=== PATIENT | female | born 1970 | race Hispanic/Latino ===

== ENCOUNTER 2017-08-30 14:48 | Emergency (ER) | payer MEDICARE, MEDICAID ==
[2017-08-30 14:48] VITALS: BMI 28.0
[2017-08-30 15:14] VITALS: TEMP 98.5; O2SAT 100
[2017-08-30 15:57] LABS: RBC URINE 3 /hpf (0-3); URINE BILIRUBIN NEGATIVE (NEGATIVE); URINE BLOOD NEGATIVE (NEGATIVE); URINE COLOR Yellow (YELLOW); URINE GLUCOSE (UA) NORMAL (Normal); URINE KETONE NEGATIVE (NEGATIVE); URINE LEUKOCYTE ESTERASE 2+ Leu/uL (Negative); URINE PROTEIN NEGATIVE (NEGATIVE); URINE UROBILINOGEN NORMAL mg/dL (0.2-1.0); WBC URINE 11 /hpf (0-5)
[2017-08-30] MEDS ORDERED: cefTRIAXone (Rocephin) 250 mg Inj IM STA (17:39)
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
[2017-08-30 18:03] VITALS: BP 120/60; PULSE 87; RESP 18
== END 2017-08-30 18:03 | disposition home or self-care (01) ==
LOC: C.ER 14:48
DX: T76.21XA Adult sexual abuse, suspected, initial encounter (principal)
CPT/HCPCS: 81001; 84703; 96372; 99285; J0696

== ENCOUNTER 2017-10-17 16:33 | Emergency (ER) | payer MEDICARE, MEDICAID ==
[2017-10-17 16:59] VITALS: BMI 32.8
[2017-10-17 17:01] VITALS: TEMP 98
[2017-10-17] MEDS ORDERED: Emtricitabine-Tenofovir 200 mg-300 mg Tab PO STA (18:26)
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
[2017-10-17] MEDS ORDERED: Emtricitabine-Tenofovir 200 mg-300 mg Tab PO NR (18:30)
[2017-10-17 19:18] LABS: HCG,QUALITATIVE URINE NEGATIVE (NEGATIVE)
[2017-10-17 19:23] LABS: SQUAMOUS EPITHIAL < 1 /hpf (0-5); URINE BILIRUBIN NEGATIVE (NEGATIVE); URINE BLOOD NEGATIVE (NEGATIVE); URINE CLARITY Clear (Clear); URINE COLOR Yellow (YELLOW); URINE GLUCOSE (UA) NORMAL (Normal); URINE LEUKOCYTE ESTERASE 2+ Leu/uL (Negative); URINE NITRATE NEGATIVE (NEGATIVE); URINE PROTEIN NEGATIVE (NEGATIVE); URINE UROBILINOGEN NORMAL mg/dL (0.2-1.0)
[2017-10-17 19:25] LABS: BASO % 0.9 % (0.0-2.0); EOS # 0.1 K/uL (0.0-0.7); EOS % 1.7 % (0.0-4.0); HEMOGLOBIN 11.9 g/dL (11.0-16.0); LYMPH # 1.7 K/uL (1.0-4.3); LYMPH % 31.1 % (20.0-40.0); MEAN CELL VOLUME 87.6 fL (81.0-99.0); MEAN CORPUSCULAR HGB CONC 34.3 g/dL (33.0-37.0); MEAN PLATELET VOLUME 7.6 fL (7.2-11.7); MONO # 0.6 K/uL (0.0-0.8); MONO % 11.1 % (0.0-10.0); NEUT # 2.9 K/uL (1.8-7.0); NEUT % 55.2 % (50.0-75.0); NRBC % 0.1 % (0.0-2.0); RBC 3.97 Mil/uL (3.80-5.20); WHITE BLOOD COUNT 5.3 K/uL (4.8-10.8)
[2017-10-17 19:29] LABS: ALB/GLOB RATIO 1.3 (1.0-2.1); ALBUMIN 3.8 g/dL (3.5-5.0); ALT/SGPT 20 U/L (9-52); AST/SGOT 20 U/L (14-36); BLOOD UREA NITROGEN 18 mg/dL (7-17); CALCIUM 9.3 mg/dl (8.6-10.4); GFR AFRICAN-AMERICAN > 60; GFR NON-AFRICAN AMERICAN > 60
[2017-10-17 20:18] VITALS: BP 120/74; PULSE 87; RESP 16
[2017-10-17 20:48] VITALS: O2SAT 100
== END 2017-10-17 20:17 | disposition home or self-care (01) ==
LOC: C.ER 16:33
DX: Z20.6 Contact with and (suspected) exposure to human immunodeficiency virus [HIV] (principal)

== ENCOUNTER 2017-10-25 13:06 | Emergency (ER) | payer MEDICARE, MEDICAID ==
[2017-10-25 13:07] VITALS: BMI 32.8
[2017-10-25 13:23] VITALS: RESP 16; TEMP 97.5; O2SAT 99
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
[2017-10-25 14:11] VITALS: BP 113/79; PULSE 98
== END 2017-10-25 14:21 | disposition home or self-care (01) ==
LOC: C.ER 13:06
DX: K62.89 Other specified diseases of anus and rectum (principal)

== ENCOUNTER 2018-12-24 17:20 | Emergency (ER) | payer MEDICARE ==
[2018-12-24 17:33] VITALS: BMI 35.4
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
[2018-12-24 18:35] VITALS: BP 118/78; PULSE 88; RESP 20; TEMP 98
[2018-12-25 11:38] VITALS: O2SAT 96
== END 2018-12-24 18:33 | disposition home or self-care (01) ==
LOC: C.ER 17:20
DX: F32.9 Major depressive disorder, single episode, unspecified (principal)